=== PATIENT | female | born 1955 | race Caucasian/White ===

== ENCOUNTER 2023-10-28 12:27 | Emergency (ER) | payer MEDICARE, OTHER ==
[2023-10-28 12:48] VITALS: O2SAT 100
--- NOTE | 2023-10-28 12:53 | ED Physician Documentation ---
PD HPI LOWER EXT INJURY - Stated complaint Stated Complaint: LT LEG PX - Chief complaint Chief Complaint: Ext Problem - History obtained from History obtained from: Patient - Additional information Additional information: While walking yesterday evening she had acute onset of posterior left knee pain. There was no specific injury.. It is still worse if she walks. No history of problems with that knee nor history of DVT/PE. She declines pain medication on initial evaluation. PD PAST MEDICAL HISTORY - Past Medical History Past Medical History: No - Past Surgical History Past Surgical History: No - Allergies Allergies/Adverse Reactions: Allergies Allergy/AdvReac Type Severity Reaction Status Date / Time Sulfa (Sulfonamide Allergy Hives Verified 10/28/23 12:44 Antibiotics) - Social History Does the pt smoke?: No Smoking Status: Never smoker Does the pt drink ETOH?: No Does the pt have substance abuse?: No - Immunizations Immunizations are current?: Yes - POLST Patient has POLST: No PD ED PE NORMAL - Vitals Vital signs reviewed: Yes - General General: Alert and oriented X 3, No acute distress - Extremities Extremities: Other (Mild tenderness of the popliteal fossa on the left. No joint effusion. No tenderness of the calf. Normal pedal pulses. Negative Homans' sign. No tenderness of the medial, anterior, or lateral areas of the left knee. Full painless range of motion.) - Neuro Neuro: Alert and oriented X 3, Normal speech Results - Vitals Vitals: Vital Signs - 24 hr 10/28/23 10/28/23 12:40 14:03 Temperature 36.2 C L Heart Rate 61 57 L Respiratory 16 18 Rate Blood Pressure 186/90 H 152/94 H O2 Saturation 100 100 Oxygen O2 Source Room air - Rads (name of study) 4 view left knee x-ray demonstrating moderate tricompartmental arthritic changes. Relevant Findings:: Final report received, EMP independent interpretation of test PD Medical Decision Making - ED course ED course: 68-year-old woman presents with acute onset pain behind the left knee. Differential diagnosis would include Edwards's cyst, osteoarthritis, muscle sprain, or DVT. Ultrasound for DVT was negative. X-ray does show osteoarthritis which is likely causative. Departure - Departure Disposition: 01 Home, Self Care Clinical Impression: Osteoarthritis, knee, Pain of lower extremity Condition: Good Record reviewed to determine appropriate education?: Yes Instructions: Knee Osteoarthritis Comments: You were seen today for pain behind the left knee. We did an ultrasound which was negative for blood clot. The x-ray did show "moderate tricompartmental a rthritic change." Use Tylenol for the pain, you can also use a nonsteroidal anti-inflammatory such as ibuprofen or Aleve but not for more than a few days. If you continue to have trouble follow-up with your primary care physician for further evaluation and treatments, and consideration of referral to orthopedics. Return for new or worsening symptoms. Your blood pressure was elevated today on check into the emergency department. This does not mean that you have hypertension, it is a common phenomenon to come to the emergency department and have elevated blood pressure. I recommend that you see your primary care physician within the week to have it rechecked when you are feeling better. Forms: PCP List Discharge Date/Time: 10/28/23 14:03
--- NOTE | 2023-10-28 13:23 | XRAY Report ---
PROCEDURE: Knee 4+V LT INDICATIONS: knee pain/leg pain TECHNIQUE: 4 views of the knee(s) were acquired. COMPARISON: None. FINDINGS: Bones: No fractures or dislocations. No suspicious bony lesions. Moderate tricompartmental arthri tic change. Soft tissues: No knee joint effusion. No suspicious soft tissue calcifications or masses. IMPRESSION: Moderate tricompartmental arthritic change. Reviewed by: Cyndy Parrish MD on 10/28/2023 1:21 PM [facility] Approved by: Cyndy Parrish MD on 10/28/2023 1:21 PM PST Station ID: [id number]
[2023-10-28 14:06] VITALS: BP 152/94
--- NOTE | 2023-10-28 15:03 | Ultrasound Report ---
PROCEDURE: Duplex Ext Veins Left INDICATIONS: knee/leg pain TECHNIQUE: Real-time imaging, as well as color and pulse Doppler interrogation, were performed of the lower extr emity deep veins from the inguinal ligament to the popliteal fossa. Attempted visualization of the ca lf veins was performed. COMPARISON: None. FINDINGS: The deep veins are normally compressible, and free of intraluminal thrombus. Color and pu lse Doppler demonstrate normal phasic intraluminal flow. There is normal augmentation response to di stal compression maneuver. IMPRESSION: No deep venous thrombosis of the visualized lower extremity. Reviewed by: Cyndy Parrish MD on 10/28/2023 3:02 PM [facility] Approved by: Cyndy Parrish MD on 10/28/2023 3:02 PM PST Station ID: [id number]
== END 2023-10-28 14:03 | disposition home or self-care (01) ==
LOC: ED 12:27
DX: M25.562 Pain in left knee (principal); M17.12 Unilateral primary osteoarthritis, left knee
CPT/HCPCS: 99283; 99284